=== PATIENT | male | born 1995 ===

== ENCOUNTER 2016-11-24 19:30 | Emergency (ER) | payer BC, OTHER ==
[2016-11-24 19:44] VITALS: BP 126/72; PULSE 110; RESP 20; TEMP 98.1; O2SAT 99
--- NOTE | 2016-11-24 20:40 | C.PDOC ---
History Of Present Illness The patient, a 21 y/o male, presents to the ED for evaluation of rectal pain which began around 1 week ago. Patient reports experiencing pain with bowel movements. Patient denies fever, chills, rectal bleeding, recent trauma, or engaging in receptive sexual intercourse. Time Seen by Provider: 11/24/16 19:47 Chief Complaint (Nursing): GI Problem History Per: Patient History/Exam Limitations: no limitations Onset/Duration Of Symptoms: Other (around 1 week ) Current Symptoms Are (Timing): Still Present Additional History Per: Patient Past Medical History Reviewed: Historical Data, Nursing Documentation, Vital Signs Vital Signs: Last Vital Signs Temp 98.1 F 11/24/16 19:42 Pulse 110 H 11/24/16 19:42 Resp 20 11/24/16 19:42 BP 126/72 11/24/16 19:42 Pulse Ox 99 11/24/16 22:21 - Medical History PMH: No Chronic Diseases Surgical History: No Surg Hx Family History: States: Unknown Family Hx - Social History Hx Alcohol Use: Yes Hx Substance Use: Yes - Immunization History Hx Tetanus Toxoid Vaccination: No Hx Influenza Vaccination: Yes (05/2016) Hx Pneumococcal Vaccination: No Review Of Systems Except As Marked, All Systems Reviewed And Found Negative. Constitutional: Negative for: Fever, Chills Gastrointestinal: Positive for: Rectal Pain. 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 Return if worsened. 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 - Scribe Statement The provider has reviewed the documentation as recorded by the Scribe (Anastasiia Beltran) All medical record entries made by the Scribe were at my direction and personally dictated by me. I have reviewed the chart and agree that the record accurately reflects my personal performance of the history, physical exam, medical decision making, and the department course for this patient. I have also personally directed, reviewed, and agree with the discharge instructions and disposition.
== END 2016-11-24 20:56 | disposition home or self-care (01) ==
LOC: C.ER 19:30
DX: K64.9 Unspecified hemorrhoids (principal)

== ENCOUNTER 2017-04-10 22:20 | Emergency (ER) | payer BC, OTHER ==
[2017-04-10 22:31] VITALS: RESP 18
[2017-04-10] MEDS ORDERED: Sodium Chloride 0.9% 1,000 ML IV STA (22:57)
--- NOTE | 2017-04-10 22:59 | C.PDOC ---
History Of Present Illness 21 y/o M c PMHx DM noncompliant with medication p/w hyperglycemia. Patient states that for a few days, he has had generalized pain in his abdomen, back and chest associated with cough. He denies fever, chills, shortness of breath, vomiting, diarrhea, constipation, dysuria. He went to an urgent care and was found to have FS 500+ and instructed to go straight to ED. Patient reports increased thirst, frequent urination, and numbness in feet. He is prescribed DM medication but does not take it because he "don't feel like it." Time Seen by Provider: 04/10/17 22:29 Chief Complaint (Nursing): High Blood Sugar Past Medical History Vital Signs: Last Vital Signs Temp 98.6 F 04/10/17 22:29 Pulse 54 L 04/10/17 22:29 Resp 18 04/10/17 22:29 BP 135/74 04/10/17 22:29 Pulse Ox 100 04/10/17 23:00 Family History: States: Unknown Family Hx - Social History Hx Alcohol Use: No Hx Substance Use: No - Immunization History Hx Tetanus Toxoid Vaccination: No Hx Influenza Vaccination: Yes (05/2016) Hx Pneumococcal Vaccination: No Review Of Systems Except As Marked, All Systems Reviewed And Found Negative. Constitutional: Negative for: Fever Respiratory: Negative for: Shortness of Breath ED Course And Treatment - Laboratory Results Result Diagrams: 04/10/17 23:09 04/10/17 23:09 O2 Sat by Pulse Oximetry: 100 Medical Decision Making Medical Decision Making: Patient with hyperglycemia in uncontrolled DM. Will rule out DKA, otherwise, check labs, CXR for cough. Counseled patient on importance of DM control. CXR no infiltrate or consolidation. Labs unremarkable other than hyperglycemia without acidosis and negative ketones. Will discharge home, f/u PMD. Disposition - Disposition Referrals: Tapan Hardy DO [Staff Provider] - Disposition: HOME/ ROUTINE Disposition Time: 23:38 Condition: STABLE Instructions: Diabetic Hyperglycemia (ED) Forms: [facility] (Guamanian) - Clinical Impression Clinical Impression: Hyperglycemia
[2017-04-10] MEDS ORDERED: Sodium Chloride 0.9% 1,000 ML ONE (23:00)
[2017-04-10 23:14] LABS: BASO % 0.4 % (0.0-2.0); HEMATOCRIT 54.7 % (35.0-51.0); LYMPH # 2.3 K/uL (1.0-4.3); MEAN CORPUSCULAR HEMOGLOBIN 30.1 pg (27.0-31.0); MEAN CORPUSCULAR HGB CONC 33.9 g/dL (33.0-37.0); MEAN PLATELET VOLUME 12.4 fL (7.2-11.7); MONO # 0.5 K/uL (0.0-0.8); MONO % 11.2 % (0.0-10.0); NRBC % 0.1 % (0.0-2.0); RED CELL DISTRIBUTION WIDTH 12.9 % (11.5-14.5); WHITE BLOOD COUNT 4.1 K/uL (4.8-10.8)
[2017-04-10 23:17] LABS: URINE BILIRUBIN NEGATIVE (NEGATIVE); URINE BLOOD NEGATIVE (NEGATIVE); URINE COLOR Yellow (YELLOW); URINE GLUCOSE (UA) 3+ mg/dL (Normal); URINE KETONE NEGATIVE (NEGATIVE); URINE LEUKOCYTE ESTERASE NEG Leu/uL (Negative); URINE PROTEIN NEGATIVE (NEGATIVE); URINE UROBILINOGEN NORMAL mg/dL (0.2-1.0); WBC URINE < 1 /hpf (0-5)
[2017-04-10 23:22] LABS: CHLORIDE 91 mmol/L (98-107); POTASSIUM 3.7 mmol/L (3.6-5.2); SODIUM 133 mmol/L (132-148)
[2017-04-10 23:24] LABS: AST/SGOT 22 U/L (17-59); BILIRUBIN,TOTAL 1.2 mg/dL (0.2-1.3); CARBON DIOXIDE 28 mmol/L (22-30); GFR AFRICAN-AMERICAN > 60
[2017-04-10 23:25] LABS: ALB/GLOB RATIO 1.1 (1.0-2.1); ALKALINE PHOSPHATASE 101 U/L (38-126); ALT/SGPT 53 U/L (21-72); BLOOD UREA NITROGEN 11 mg/dL (9-20); CALCIUM 9.7 mg/dl (8.6-10.4); TOTAL PROTEIN 7.9 g/dL (6.3-8.3)
[2017-04-10 23:30] LABS: GLUCOSE,RANDOM 512 mg/dL (75-110)
[2017-04-11 00:15] VITALS: BP 133/69; PULSE 57; TEMP 98.4; O2SAT 99
--- NOTE | 2017-04-11 09:50 | RAD ---
HISTORY: body pain COMPARISON: None available. TECHNIQUE: Chest PA and lateral FINDINGS: LUNGS: No focal consolidation. PLEURA: No significant pleural effusion identified. No definite pneumothorax . CARDIOVASCULAR: The cardiomediastinal silhouette appears within normal limits of size. OSSEOUS STRUCTURES: No acute osseous abnormality identified. VISUALIZED UPPER ABDOMEN: Unremarkable. OTHER FINDINGS: None. IMPRESSION: No focal consolidation, significant pleural effusion, or definite pneumothorax identified.
== END 2017-04-11 00:15 | disposition home or self-care (01) ==
LOC: C.ER 22:20
DX: E11.65 Type 2 diabetes mellitus with hyperglycemia (principal); Z91.14 Patient's other noncompliance with medication regimen
CPT/HCPCS: 71020; 80053; 81001; 82009; 82948; 83690; 85025; 96360; 99285; J7040

== ENCOUNTER 2017-11-30 21:38 | Emergency (ER) | payer BC, MEDICAID ==
[2017-11-30 21:48] VITALS: BP 136/74; PULSE 79; RESP 18; TEMP 97.6; O2SAT 100
--- NOTE | 2017-11-30 22:22 | C.PDOC ---
History Of Present Illness The patient reports that he developed sore throat, cough, which is associated with nasal congestion. Denies fever, nausea, vomiting, diarrhea, Time Seen by Provider: 11/30/17 21:56 Chief Complaint (Nursing): ENT Problem History Per: Patient History/Exam Limitations: None Onset/Duration Of Symptoms: Days (1) Current Symptoms Are (Timing): Still Present Severity: Mild Pain Scale Rating Of: 1 Past Medical History Reviewed: Historical Data, Nursing Documentation, Vital Signs Vital Signs: Last Vital Signs Temp 97.6 F 11/30/17 21:45 Pulse 79 11/30/17 21:45 Resp 18 11/30/17 21:45 BP 136/74 11/30/17 21:45 Pulse Ox 100 11/30/17 22:24 Surgical History: No Surg Hx Family History: States: Unknown Family Hx - Social History Hx Tobacco Use: Yes Hx Alcohol Use: No Hx Substance Use: Yes - Immunization History Hx Tetanus Toxoid Vaccination: No Hx Influenza Vaccination: Yes (05/2016) Hx Pneumococcal Vaccination: No Review Of Systems Except As Marked, All Systems Reviewed And Found Negative. Physical Exam - Physical Exam Appears: Non-toxic, No Acute Distress Skin: Warm, Dry, No Rash Head: Atraumatic, Normacephalic Eye(s): bilateral: Normal Inspection, PERRL, EOMI Ear(s): Bilateral: Normal Oral Mucosa: Moist Tongue: Normal Appearing Lips: Normal Appearing, No Swelling Throat: No Erythema, No Exudate Neck: Normal ROM, Supple Chest: Symmetrical, No Tenderness Cardiovascular: Rhythm Regular, No Friction Rub, No Murmur Respiratory: Normal Breath Sounds, No Rales, No Rhonchi, No Stridor, No Wheezing Gastrointestinal/Abdominal: Soft, No Tenderness Back: Normal Inspection, No CVA Tenderness Extremity: Normal ROM, No Swelling Neurological/Psych: Oriented x3, Normal Speech, Normal Motor Gait: Steady ED Course And Treatment O2 Sat by Pulse Oximetry: 100 (on RA) Pulse Ox Interpretation: Normal Progress Note: The patient has normal physical exam. No need for further diagnostic testing. Disposition - Disposition Referrals: [facility] [Outside] Disposition: HOME/ ROUTINE Disposition Time: 22:22 Condition: FAIR Additional Instructions: Follow up with the medical doctor/clinic. Return if worsened. Prescriptions: Ibuprofen [Motrin] 1 tab PO TID PRN #30 tab PRN Reason: Pain Loratadine [Claritin] 10 mg PO DAILY #10 tab predniSONE [Prednisone] 10 mg PO BID #10 tab Instructions: Viral Upper Respiratory Infection, Adult (DC) Forms: [facility] ([place] Islander) - Clinical Impression Clinical Impression: Upper respiratory infection
== END 2017-11-30 22:40 | disposition home or self-care (01) ==
LOC: C.ER 21:38
DX: J06.9 Acute upper respiratory infection, unspecified (principal)

== ENCOUNTER 2018-10-19 22:27 | Emergency (ER) | payer SELFPAY ==
[2018-10-19 23:01] VITALS: TEMP 98.6; O2SAT 99
[2018-10-19] MEDS ORDERED: Sodium Chloride 0.9% 1,000 ML IV ONE (23:16)
[2018-10-19] MEDS ORDERED: (Novolin R) Insulin Human Regular 100 units/ml vial IVP STA (23:16)
[2018-10-19 23:43] LABS: LYMPH # 1.5 K/uL (1.0-4.3); MONO # 0.3 K/uL (0.0-0.8); NEUT # 1.1 K/uL (1.8-7.0); NRBC % 0.2 % (0.0-2.0)
[2018-10-19 23:47] LABS: BASO % 0.5 % (0.0-2.0); EOS % 0.7 % (0.0-4.0); HEMOGLOBIN 17.4 g/dL (12.0-18.0); LYMPH % 51.5 % (20.0-40.0); MEAN CELL VOLUME 89.8 fL (80.0-94.0); MEAN CORPUSCULAR HEMOGLOBIN 30.5 pg (27.0-31.0); MEAN CORPUSCULAR HGB CONC 33.9 g/dL (33.0-37.0); MEAN PLATELET VOLUME 12.3 fL (7.2-11.7); MONO % 9.7 % (0.0-10.0); NEUT % 37.6 % (50.0-75.0); RBC 5.71 Mil/uL (4.40-5.90); RED CELL DISTRIBUTION WIDTH 12.8 % (11.5-14.5)
[2018-10-19] MEDS ORDERED: (Novolin R) Insulin Human Regular 100 units/ml vial ONE (23:49)
[2018-10-19 23:56] LABS: ALB/GLOB RATIO 1.3 (1.0-2.1); ALBUMIN 4.6 g/dL (3.5-5.0); ALT/SGPT 42 U/L (21-72); AST/SGOT 28 U/L (17-59); BLOOD UREA NITROGEN 11 mg/dL (9-20); CALCIUM 9.5 mg/dl (8.6-10.4); GFR NON-AFRICAN AMERICAN > 60; LIPASE 72 U/L (23-300)
--- NOTE | 2018-10-20 00:42 | C.PDOC ---
History Of Present Illness 23 year old male with PMHx of DM presents to the ED for evaluation of elevated blood sugar. Patient reports he recently changed to a new insulin pen, with poor controlled blood sugar. Patient states today he has not eaten anything due to feeling nauseous. Patient also c/o polydypsia and polyuria. Time Seen by Provider: 10/19/18 23:12 Chief Complaint (Nursing): High Blood Sugar History Per: Patient History/Exam Limitations: no limitations Onset/Duration Of Symptoms: Days Current Symptoms Are (Timing): Still Present Current Diabetic Medications: Insulin Causative (Exacerbating) Factor(s): Missed A Meal Associated Infectious Symptoms: Urinary Urgency, Urinary Frequency Treatment Prior To Provider Evaluation: Accucheck Recent travel outside of the [place]: No Additional History Per: Patient Past Medical History Reviewed: Historical Data, Nursing Documentation, Vital Signs Vital Signs: Last Vital Signs Temp 98.6 F 10/19/18 22:52 Pulse 79 10/19/18 22:52 Resp 18 10/19/18 22:52 BP 138/81 10/19/18 22:52 Pulse Ox 99 10/19/18 22:52 - Medical History PMH: Diabetes Surgical History: No Surg Hx Family History: States: Unknown Family Hx - Social History Hx Tobacco Use: Yes Hx Alcohol Use: No Hx Substance Use: Yes - Immunization History Hx Tetanus Toxoid Vaccination: No Hx Influenza Vaccination: Yes (05/2016) Hx Pneumococcal Vaccination: No Review Of Systems Constitutional: Negative for: Fever, Chills Cardiovascular: Negative for: Chest Pain, Palpitations Respiratory: Negative for: Shortness of Breath Gastrointestinal: Positive for: Nausea, Abdominal Pain. Negative for: Vomiting Skin: Negative for: Rash Neurological: Negative for: Weakness, Numbness, Headache, Dizziness Physical Exam - Physical Exam Appears: Non-toxic, No Acute Distress Skin: Normal Color, Warm, Dry Head: Atraumatic, Normacephalic Eye(s): bilateral: Normal Inspection Oral Mucosa: Moist Neck: Normal ROM, Supple Chest: Symmetrical Cardiovascular: Rhythm Regular Respiratory: Normal Breath Sounds, No Rales, No Rhonchi, No Wheezing Gastrointestinal/Abdominal: Bowel Sounds (diminished), Soft, No Tenderness, No Guarding, No Rebound Extremity: Normal ROM, No Tenderness, No Swelling Neurological/Psych: Oriented x3, Normal Speech, Normal Cognition Gait: Steady ED Course And Treatment - Laboratory Results Result Diagrams: 10/19/18 23:30 10/19/18 23:30 Lab Results: Total Bilirubin 1.1 mg/dL (0.2-1.3) 10/19/18 23:30 AST 28 U/L (17-59) 10/19/18 23:30 ALT 42 U/L (21-72) 10/19/18 23:30 Alkaline Phosphatase 82 U/L (38-126) 10/19/18 23:30 Total Protein 8.0 g/dL (6.3-8.3) 10/19/18 23:30 Albumin 4.6 g/dL (3.5-5.0) 10/19/18 23:30 Globulin 3.4 gm/dL (2.2-3.9) 10/19/18 23:30 Albumin/Globulin Ratio 1.3 (1.0-2.1) 10/19/18 23:30 Lipase 72 U/L (23-300) 10/19/18 23:30 Lab Interpretation: Abnormal (+ mild elev glu, no DKA) O2 Sat by Pulse Oximetry: 99 (ON RA) Pulse Ox Interpretation: Normal Reevaluation Time: 00:46 Reassessment Condition: Improved Medical Decision Making Medical Decision Making: Plan: * LAbs * Insulin * IV fluids * UA * poorly controlled glu on new insulin regimen no DKA Disposition Doctor Will See Patient In The: Office Counseled Patient/Family Regarding: Studies Performed, Diagnosis - Disposition Disposition: HOME/ ROUTINE Disposition Time: 00:47 Condition: GOOD Forms: [facility] (Mauritanian) - Clinical Impression Clinical Impression: Hyperglycemia - Scribe Statement The provider has reviewed the documentation as recorded by the Scribdenise Clark All medical record entries made by the Herbibe were at my direction and personally dictated by me. I have reviewed the chart and agree that the record accurately reflects my personal performance of the history, physical exam, medic al decision making, and the department course for this patient. I have also personally directed, reviewed, and agree with the discharge instructions and disposition.
[2018-10-20 01:13] VITALS: BP 132/84; PULSE 88; RESP 16
== END 2018-10-20 01:18 | disposition home or self-care (01) ==
LOC: C.ER 22:27
DX: E11.65 Type 2 diabetes mellitus with hyperglycemia (principal); Z79.4 Long term (current) use of insulin
CPT/HCPCS: 80053; 82948; 83690; 85025; 96374; 99284; J7030

== ENCOUNTER 2018-12-12 19:58 | Emergency (ER) | payer SELFPAY | END 2018-12-12 21:51 | disposition home or self-care (01) | LOC: C.ER 19:58 | DX: J06.9 Acute upper respiratory infection, unspecified (principal) ==